=== PATIENT | female | born 1955 ===

== ENCOUNTER 2019-10-06 10:53 | Outpatient (REF) | payer BC, SELFPAY ==
[2019-10-06 21:31] LABS: Calculated LDL 137 mg/dL (<100); Cholesterol 212 mg/dL (<200); HDL Cholesterol 64 mg/dL (40-60); TSH 0.49 uIU/mL (0.36-3.74); Triglyceride 55 mg/dL (<150)
[2019-10-09 11:27] LABS: Hepatitis C Ab w Rflx HCV PCR Negative (Negative)
== END 2019-10-06 11:13 ==
LOC: NCHCN 10:53
PROVIDERS: PCP Nurse Practitioner Family; Visit Provider Nurse Practitioner Family
DX: Z13.0 Encounter for screening for diseases of the blood and blood-forming organs and certain disorders involving the immune mechanism (principal); Z13.1 Encounter for screening for diabetes mellitus; Z13.29 Encounter for screening for other suspected endocrine disorder; Z13.6 Encounter for screening for cardiovascular disorders; Z11.59 Encounter for screening for other viral diseases
CPT/HCPCS: 80061; 86803; 84443